=== PATIENT | female | born 1970 | race Caucasian/White ===

== ENCOUNTER 2017-04-08 09:54 | Day surgery (SDC) | payer OTHER ==
[2017-04-07 12:27] VITALS: BMI 34.1
[~2017-04-08] VITALS: Ht 170.2 cm; Wt 79.0 kg
[2017-04-08] VITALS (9 sets, daily range): BP systolic 104–145; BP diastolic 57–92; PULSE 80–92; RESP 14–20; Ht 170.2 cm; Wt 79.0 kg
--- NOTE | 2017-04-08 10:56 | PREOPHP ---
DATE OF ADMISSION: 04/08/2017 Patient is coming for surgery on 04/08/2017. HISTORY OF PRESENT ILLNESS: This is a 46-year-old female, 4, para 3, abortions 1. This patient has suffered for awhile with irregular periods with a fibroid uterus and perimenopausal syndrome, with hot flashes, vaginal dryness, and constipation. This patient has not been sexually active due to her has a problem with penile cancer. She had a history of a in 2010 and a laparoscopic bilateral ovarian cystectomy in 2003. This patient has a recurrent problem with bilateral ovarian cysts, and she has been on control pills, due to the fact that the ovarian cysts were giving her severe pelvic pain. This patient has been referred to me, due to these ovarian cysts that are recurrent and growing. For this reason, she was offered a laparoscopic approach. One of the cysts was complex, and she has a positivity of having endometriosis. The fibroids were at this time controlled with control. The patient is not in full menopause. She is in perimenopause and controlled on control pills. The laparoscopic approach will be to determine the etiology of these cysts and possibly to remove the cysts and with the possibility of removing the endometrial endometriosis. The patient is booked for pelviscopy and bilateral ovarian cystectomy. PAST MEDICAL HISTORY: Has been a majorly fibroid uterus, abnormal bleeding, ovarian cysts, and a . Otherwise, she has been healthy, with no history of any endocrine disease. No history of diabetes or thyroid. No cardiovascular disease. No GI disease. No lung disease. SOCIAL HISTORY: No history of smoking or drinking or any drugs. ALLERGIES: SHE IS NOT ALLERGIC TO ANY MEDICATION. FAMILY HISTORY: For hypertension, heart attacks, epilepsy, strokes and diabetes. MEDICATIONS: She is only using vitamins and control pills. PHYSICAL EXAMINATION: GENERAL: Good. VITAL SIGNS: Stable with the blood pressure 120/60, pulse is 80, respirations 16. She weighs 178 pounds. She is 5 feet 1 inch. HEAD AND NECK: Normal. BREASTS: With fibrocystic breast disease. No masses. CHEST: Clear. HEART: Normal sinus rhythm. LUNGS: Clear. ABDOMEN: Soft, nontender, no masses. GYNECOLOGIC: Normal external genitalia. Uterus retroverted, flexed with fibroids. Adnexa are painful. RECTAL EXAMINATION: with pain. DIAGNOSIS: This patient has a diagnosis of: 1. Left ovarian complex cyst. 2. Irregular uterine bleeding. 3. Fibroid uterus. 4. Perimenopausal syndrome. PLAN: She is undergoing a pelviscopic bilateral ovarian cystectomy, due to chronic pelvic pain, fibroid uterus, and possible endometriosis. She has been advised of the possible risks and possible complications of the procedure with her alternatives and options. Written information was provided. She had no more questions and agreed to go ahead with the procedure with full understanding and no more questions. Dictated By: Rosa Dudley MD /shanita/nicholas /Document#: [id number]
[2017-04-08] MEDS ORDERED: CEFAZOLIN 2 GM/50 ML (PMX) 50 ML IVPB SCH (11:00)
[2017-04-08] MEDS ORDERED: LACTATED RINGER'S 1,000 ML IV SCH (11:30)
[2017-04-08] MEDS ORDERED: NEOSTIGMINE 3 MG/3 ML SYRINGE ONE (12:09)
[2017-04-08] MEDS ORDERED: PROPOFOL 20 ML ONE ×2 (12:09→13:38)
[2017-04-08] MEDS ORDERED: GLYCOPYRROLATE 0.4 MG INJ ONE (12:09)
[2017-04-08] MEDS ORDERED: LIDOCAINE 2% (SDV) 5 ML INJ ONE ×2 (12:09→13:38)
[2017-04-08] MEDS ORDERED: ROCURONIUM 50 MG INJ ONE ×2 (12:09→13:38)
[2017-04-08] MEDS ORDERED: DEXAMETHASONE 4 MG/ML 1 ML INJ ONE (12:10)
[2017-04-08] MEDS ORDERED: MIDAZOLAM 1 MG/ML 2 ML INJ ONE (12:10)
[2017-04-08] MEDS ORDERED: ONDANSETRON 4 MG INJ ONE (12:10)
[2017-04-08] MEDS ORDERED: FENTAnyl 50 MCG/ML VIAL ONE ×2 (12:10→13:23)
[2017-04-08] MEDS ORDERED: ONDANSETRON 4 MG INJ IV PRN ×2 (12:30→14:00)
[2017-04-08] MEDS ORDERED: MIDAZOLAM 1 MG/ML 2 ML INJ IV PRN (12:30)
[2017-04-08] MEDS ORDERED: hydrALAzine 20 MG INJ IV PRN (12:30)
[2017-04-08] MEDS ORDERED: FENTAnyl 50 MCG/ML VIAL IV PRN ×4 (12:30→14:00)
[2017-04-08] MEDS ORDERED: ATROPINE 1 MG/10 ML SYRINGE IV PRN (12:30)
[2017-04-08] MEDS ORDERED: MEPERIDINE 25 MG INJ IV PRN ×2 (12:30→14:00)
[2017-04-08] MEDS ORDERED: OXYCODONE/ACETAMINOPHEN (5/325) TAB PO PRN ×3 (12:30→14:00)
[2017-04-08] MEDS ORDERED: LABETALOL HCL 20MG INJ IV PRN (12:30)
[2017-04-08] MEDS ORDERED: morphine (1 MG/ML) 10ML SYRINGE IV PRN ×3 (12:30)
[2017-04-08] MEDS ORDERED: HYDROmorphONE (0.2 MG/ML) 10ML SYG IV PRN ×4 (12:30→14:00)
[2017-04-08] MEDS ORDERED: DIPHENHYDRAMINE 50 MG INJ IV PRN ×2 (12:30→14:00)
[2017-04-08] MEDS ORDERED: EPHEDrine SULFATE 50 MG/5 ML SYG IV PRN (12:30)
[2017-04-08] MEDS ORDERED: PHENYLephrine (100 MCG/ML) 5ML SYG ONE (12:41)
[2017-04-08] MEDS ORDERED: BUPIVACAINE 0.5%/EPI (SDV) 10 ML INJ ONE (12:59)
[2017-04-08] MEDS ORDERED: SUCCINYLCHOLINE CHLORIDE 100 MG/5 ML SYG IV ONE (13:38)
[2017-04-08] MEDS ORDERED: CEFAZOLIN 1 GM INJ ONE (13:38)
[2017-04-08] MEDS ORDERED: METOCLOPRAMIDE 10 MG INJ IV PRN (14:00)
[2017-04-08] MEDS ORDERED: ROPIVACAINE 0.5 % 30 ML VIAL ONE (14:57)
[2017-04-08] MEDS ORDERED: SUGAMMADEX SODIUM 200 MG/2 ML VIAL IV ONE (14:59)
--- NOTE | 2017-04-08 15:11 | PD.PPDC ---
OY[facility] CULLER Discharge Instruction Condition Patient Condition: Good Diet Diet: Resume Regular Diet Activity/Restrictions Activity: Normal Activity May Shower Restrictions: No Exercising No Lifting No Driving No Sexual Activity Nothing in the Vagina No [place] No Tampons, douche Wound/Drain Care Instructions Wound/Drain Care Instructions: Remove Steri Strips in 1 week Wash with soap and water Keep clean and dry Follow-up Follow-up with Physician: 2, Week/Weeks Return to clinic for INSURANCE RATER Instructions: Fever greater than 101 Chills Worsening abdominal pain Excessive Vaginal Bleeding More than 2 pads per hour Unable to tolerate diet Surgical Instructions: Incisional Drainage Incisional Redness NERY ELISE MD Apr 08, 2017 15:11
--- NOTE | 2017-04-08 15:17 | OPR ---
Date/Time of Note Date/Time of Note DATE: 04/08/17 TIME: 15:14 Operative Report Procedure Date: Apr 08, 2017 Preoperative Diagnosis intractable pelvic pain and bleeding fibroid uterus bilateral ovarian cysts Postoperative Diagnosis same Operation Performed PELVISCOPIC LEFT OVARIAN CYST ASPIRATION OF LEFT OVARIAN CYST RIGHT OVARIAN CYST FULGURATION Surgeon: NERY ELISE MD Anesthesiologist: ZOE OVIEDO Estimated Blood Loss: minimal Transfusion Required: no Specimens LEFT OVARIAN CYST LEFT OVARIAN CYST FLUID Complications: no Pt Condition Post Procedure: stable Disposition: PACU NERY ELISE MD Apr 08, 2017 15:17
--- NOTE | 2017-04-08 15:24 | HPN ---
Date/Time of Note Date/Time of Note DATE: 04/08/17 TIME: 15:23 Interval H&P Admission Note Pt. seen H&P reviewed: No system changes NERY ELISE MD Apr 08, 2017 15:23
[2017-04-08] MEDS: HYDROmorphONE (0.2 MG/ML) 10ML SYG IV PRN ×5 (15:26→15:55)
[2017-04-08] MEDS ORDERED: KETOROLAC 30 MG INJ IV PRN (15:30)
--- NOTE | 2017-04-08 18:19 | OPR ---
DATE OF OPERATION: 04/08/2017 PROCEDURES: Pelviscopic left ovarian cystectomy and aspiration of ovarian cyst fluid and right ovarian cyst fulguration. PREOPERATIVE DIAGNOSES: 1. Intractable pelvic pain and bleeding. 2. Fibroid uterus. 3. Bilateral ovarian cysts, persistent. 4. Perimenopausal syndrome. POSTOPERATIVE DIAGNOSES: 1. Intractable pelvic pain and bleeding. 2. Fibroid uterus. 3. Bilateral ovarian cysts, persistent. 4. Perimenopausal syndrome. SURGEON: Dr. Dudley. ANESTHESIA: with general. OPERATIVE PROCEDURE: The patient was given general anesthesia, placed in the lithotomy position. The abdomen, perineal and vaginal area were prepped and draped and a Mak catheter was placed in the bladder. A inserted in the uterus for uterine manipulation. A small incision was made on the inferior edge of the umbilicus and an incision was done to the fascia where 2 sutures with number 1 Vicryl were placed on either side and the peritoneum was entered bluntly. The Froilan was inserted. After inflation of the balloon under the Messer the scope was placed and CO2 insufflation of the abdomen was done. His suprapubic cannula was done with a 5 mm trocar suprapubically and a right-sided small 5 mm trocar was also placed laterally to the abdomen 5 cm below the umbilical area. The 3rd trocar was placed in for manipulation. We use instruments to fully visualize the whole pelvis. The uterus appears to have a small pain in tiny intramural fibroid and both tubes were normal. Both ovaries were polycystic and the left ovary had like follicular cysts, bigger than the right side. The aspiration of the left ovarian cyst was done, and this fluid was sent for cell block. This was done with a needle. Now bipolar current was used with bipolar instrument and the excision of the cyst was done and placed in the endobag, and removed the endobag through the umbilical incision. Using a 5 mm scope on the right side. The right ovary was smaller with smaller cysts, which were fulgurated with a bipolar currant without sampling. The procedure was finished by cleaning up the pelvic area with saline solution. Irrigation was done and was aspirated and the gas was also aspirated. There was no active bleeding seen. The procedure was finished by removing all the instruments, the gas inflated of the abdomen and the abdomen closed with an 0 Vicryl for the fascia and 3-0 Monocryl subcuticular to all 3 incisions. Marcaine solution was used in all 3 incisions for pain control. Dermabond and Steri-Strips. The patient tolerated the procedure well and left the OR awake and stable. Sponge counts, instrument count, needle counts were correct. Intravenous antibiotics given were given for prophylaxis. Dictated By: Rosa Dudley MD /shanita/daniel /Document#: [id number]
--- NOTE | 2017-04-09 13:49 | RADRPT ---
Vent Rate: 80 bpm RR Interval: 0 msec DC Interval: 166 msec QRS Duration: 92 msec QT Interval: 420 msec QTC Interval: 484 msec P-R-T [place]: 51 - 28 - 36 degrees Normal sinus rhythm Prolonged QT Abnormal ECG Electronically Signed By: Desmond Savage [id number]
== END 2017-04-08 17:25 | disposition home or self-care (01) ==
LOC: SDS 09:54
PROVIDERS: ATTEND Obstetrics & Gynecology
DX: N83.202 Unspecified ovarian cyst, left side (principal); D25.9 Leiomyoma of uterus, unspecified; E66.9 Obesity, unspecified; Z68.27 Body mass index [BMI] 27.0-27.9, adult
CPT/HCPCS: 49322; 88104; 88305; 93005; J0690; J1100; J1170; J2175; J2405; J2765; J2795; J3010; Z7512; Z7610; J2250; J2370; J2710; J7999